=== PATIENT | female | born 1985 | race Caucasian/White ===

== ENCOUNTER 2021-03-13 14:38 | Emergency (ER) | payer OTHER, SELFPAY ==
--- NOTE | ~2021-03-13 | XR_ITS ---
EXAMINATION: XR shoulder LT min 2V DATE: 03/13/2021 14:58 INDICATION: Left shoulder pain post fall TECHNIQUE: AP internally and externally rotated, AP oblique externally rotated and transscapular Y vi ews of the left shoulder were obtained. COMPARISON: None FINDINGS: Fracture extending across the surgical neck of the proximal left humerus with approximately 5 mm ante romedial displacement and 15-20 degrees posterolateral angulation. The fracture plane is either irreg ular with both transverse and oblique components versus mildly comminuted. No evident extension into the humeral head or lesser greater tuberosities. Humeral head appears normally centered of the glenoi d with unremarkable glenohumeral joint. Left acromioclavicular joint space is normal. Visualized port ions of the lungs are clear. Soft tissues are unremarkable. IMPRESSION: 1 part fracture at the surgical neck of the proximal left humerus. Reviewed, dictated and finalized at [facility]. HERMAL OPERATING ENGINEER
[2021-03-13 14:37] VITALS: BP 132/91; PULSE 97; RESP 18; TEMP 36.7; O2SAT 99
[2021-03-13] MEDS: HYDROmorphone HCL INJ (*CRX) 1 MG/ML SYR 0.5 MG IV PUSH (15:23)
[2021-03-13] MEDS: ONDANSETRON INJ 4 MG/2 ML VIAL IV PUSH (15:23)
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
[2021-03-13 16:34] VITALS: BP 132/78; PULSE 78; RESP 18; O2SAT 99
== END 2021-03-13 16:36 | disposition home or self-care (01) ==
PROVIDERS: Emergency Provider Emergency Medicine
DX: S42.202A Unspecified fracture of upper end of left humerus, initial encounter for closed fracture (principal); V00.848A Other accident with standing micro-mobility pedestrian conveyance, initial encounter
CPT/HCPCS: 73030; 96374; 96375; 99284; A4565; J1170; J2405

== ENCOUNTER 2022-02-28 10:02 | Emergency (ER) | payer OTHER, SELFPAY ==
[2022-02-28 10:20] VITALS: BP 124/86; PULSE 110; RESP 20; TEMP 36.1; O2SAT 98
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
== END 2022-02-28 11:16 | disposition home or self-care (01) ==
PROVIDERS: Emergency Provider Nurse Practitioner Family
DX: J02.9 Acute pharyngitis, unspecified (principal); Z20.822 Contact with and (suspected) exposure to COVID-19; M19.90 Unspecified osteoarthritis, unspecified site; R12 Heartburn
CPT/HCPCS: 87081; 87426; 87804; 87880; 99213; C9803; G0463

== ENCOUNTER 2024-03-22 07:10 | Outpatient (CLI) | payer OTHER, SELFPAY ==
[2024-03-22 08:40] LABS: Beta HCG Quantitative < 2.39 mIU/ML
[2024-03-22 13:32] LABS: Free T4 Free Thyroxine Reflex 1.16 ng/dL (0.78-2.19)
[2024-03-23 17:09] LABS: FSH 12.4 mIU/mL; LH 2.7 mIU/mL; Prolactin 11.3 ng/mL
[2024-03-26 01:08] LABS: Estradiol, Ultrasensitive 42 pg/mL
--- OUTSIDE RECORDS SUMMARY | 2024-03-29 01:37 | XMS_ITS | Encounter Summary ---
Author Organization [facility] Address [address] [place] [address]. [place], [place] [id number] [place] [address] Care Team Providers Care Swimming Coach Or Instructor Name Role Phone None, Provider Primary Care Provider Unavaila ble Reason for Referral * Imaging (Emergency) - Closed Specialty Diagnoses / Procedures Referred By Contac t Referred To Contact RADIOLOGY Diagnoses Shoulder pain, left Procedures CT SHOULDER LT WO CON Geraldine Pope NP [address] [place] [id number] Phone: tel: fax: Referral ID Status Reason Start Date Expiration Date Visits Re quested Visits Authorized [id number] Closed 03/18/2021 04/18/2022 1 1 F PROGRAM OFFICER Reason for Visit * Imaging (Emergency) - Closed Specialty Diagnoses / Procedures Referred By Contac t Referred To Contact RADIOLOGY Diagnoses Shoulder pain, left Procedures CT SHOULDER LT WO CON Geraldine Pope NP [address] [place] [address] Phone: tel: fax: Referral ID Status Reason Start Date Expiration Date Visits Re quested Visits Authorized [id number] Closed 03/18/2021 04/18/2022 1 1 Encounter Details Date Type Department Care Team (Latest Contact Info) Description 03/18/2021 2:00 PM CHIEF PROGRAM OFFICER - 03/18/2021 11:59 PM CHIEF PROGRAM OFFICER [place] [address] [place] [address] Geraldine Pope, SKYELR [address] [place] [address] Discharge Disposition: Home or Self Care (Routine Discharge) Social History Tobacco Use Types Packs/Day Years Used Date Smoking Tobacco: Never Assessed Comments Unknown Sex and Gender Information Value Date Recorded Sex Assigned at Not on file Legal Sex Female 4:44 PM CDT Gender Identity Not on file Sexual Orientation Not on file COVID-19 Exposure Response Date Recorded In the last month, have you been in contact with someone who was confirmed or suspected to have Coronavirus / COVID-19? No / Unsure 03/18/2021 1:55 PM CHIEF PROGRAM OFFICER documented as of this encounter Plan of Treatment Not on file documented as of this encounter Procedures Procedure Name Priority Date/Time Associated Diagnosis Comments CT SHOULDER LT WO CON STAT 03/18/2021 2:57 PM CHIEF PROGRAM OFFICER Shoulder pain, left documented in this encounter Results * CT SHOULDER LT WO CON (03/18/2021 2:57 PM CHIEF PROGRAM OFFICER) Anatomical Region Laterality Modality Shoulder Computed Tomogra phy 03/18/2021 3:43 PM CHIEF PROGRAM OFFICER Narrative 03/18/2021 3:51 PM CHIEF PROGRAM OFFICER IMAGING STUDIES: CT SHOULDER LT WO CON ? DATE: 03/18/2021 2:38 PM CLINICAL HISTORY: Shoulder pain, left ?? . ??Fall. COMPARISON: No Comparisons. Radiation dose reduction technique utilized. CONCLUSION: 1. ??Exam is positive for comminuted and impacted fracture of the humeral neck. Subtle extension into the inferior aspect of the greater tuberosity. 2. ??Minor angulation with apex pointing anteriorly. Normal contour to the humeral head. 3. ??AC joint is well-maintained. Distal clavicle and scapula are intact. 4. ??Mild adjacent soft tissue swelling. Small joint effusion. No focal fluid collections. No axillary lesions. Ordered By: GERALDINE POPE Interpreted By: Andrew Campbell, 03/18/2021 3:43 PM Procedure Note Elpidio Campbell MD - 03/18/2021 IMAGING STUDIES: CT SHOULDER LT WO CON DATE: 03/18/2021 2:38PM CLINICAL HISTORY: Shoulder pain, left . Fall. COMPARISON: No Comparisons. Radiation dose reduction technique utilized. CONCLUSION: 1. Exam is positive for comminuted and impacted fracture of the humeralneck. Subtle extension into the inferior aspect of the greatertuberosity. 2. Minor angulation with apex pointing anteriorly. Normal contour to thehumeral head. 3. AC joint is well-maintained. Distal clavicle and scapula are intact. 4. Mild adjacent soft tissue swelling. Small joint effusion. No focalfluid collections. No axillary lesions. Ordered By: GERALDINE POPE Interpreted By: Andrew Campbell, 03/18/2021 3:43 PM us Geraldine Ppoe NP CT Final Result documented in this encounter Visit Diagnoses Diagnosis Shoulder pain, left Pain in joint, shoulder region documented in this encounter Care Teams Swimming Coach Or Instructor Relationship Specialty Start Date End Date None, Provider, PCP - General 03/18/21 documented as of this encounter
--- OUTSIDE RECORDS SUMMARY | 2024-03-29 01:37 | XMS_ITS | Clinical Summary ---
Author Organization [facility] Address [address] [place] [address]. [place], [place] [address] [place] [address] Care Team Providers Care Dough Catcher Name Role Phone None, Provider Primary Care Provider Unavaila ble Social History Tobacco Use Types Packs/Day Years Used Date Smoking Tobacco: Never Assessed Comments Unknown Sex and Gender Information Value Date Recorded Sex Assigned at Not on file Legal Sex Female 4:44 PM CDT Gender Identity Not on file Sexual Orientation Not on file Plan of Treatment Health Maintenance Due Date Last Done Comments Cervical Cancer Screening Pa p Smear (Age 30 to 64) Every 3 Years 1986 Annual Physical 1989 Hepatitis C 01/17/2004 DTaP, Tdap and Td Vaccines ( 1 - Tdap) 2005 Hepatitis B Vaccines (1 of 3 - 19+ 3-dose series) 2005 Cervical Cancer Screening Pa p with HPV Testing (Age 30 to 64) Every 5 Years 01/17/2016 Cervical Cancer Screening with HPV 01/17/2016 COVID-19 Vaccine (2023-2 5 season) 2023 Influenza Adult (#1) 2023 HPV Vaccines Aged Out No longer eligi ble based on patient's age to complete this topic Meningococcal Vaccine Aged Out No jim braydon eligible based on patient's age to complete this topic Pneumococcal Vaccine: Pediat rics (0 to 5 Years) and At-Risk Patients (6 to 64 Years) Aged Out No longer eligible b ased on patient's age to complete this topic RSV Immunizations Under 20 Months Aged Out No longer eligible based on patient's age to complete this topic Insurance THERI[employer] Care Teams Dough Catcher Relationship Specialty Start Date End Date None, Provider, PCP - General 03/18/21
--- OUTSIDE RECORDS SUMMARY | 2024-03-29 01:37 | XMS_ITS | Patient Health Summary ---
Author Organization [facility] Address [address] [place] [address] Care Team Providers Care Parts Cataloger Name Role Phone Unavailable Primary Care Provider Unavailabl e Note from [facility],non-owned Affiliates and Associated Physician Practices is amultiple site organization consisting of ambulatory clinics and hospital sitesin [place], [place], [place] and [place]. This disclosure is being madepursuant to the Care Everywhere program and may not contain all information available regarding this patient. Last updated 17.[facility] Active Problems Problem Noted Date Diagnosed Date Small for gestational age 0406/29/2013 Supervision of other high-risk 014 Social History Tobacco Use Types Packs/Day Years Used Date Smoking Tobacco: Never Assessed Sex and Gender Information Value Date Recorded Sex Assigned at Not on file Gender Identity Not on file Sexual Orientation Not on file Procedures * SONOGRAM - COMPLETE(Performed 07/03/2013) Performed for Small for gestational age (HCC), Supervision of other high-risk (HCC) Results * SONOGRAM - COMPLETE (07/03/2013 4:28 PM CDT) Anatomical Region Laterality Modality Other 07/03/2013 4:28 PM CDT Narrative 07/03/2013 4:29 PM CDT ?[facility]aternal [facility] ? [facility] ?PHONE: ??FAX: ? Pat. Name: ?MAR BURTON Reema. No: ?[id number] Study Date: ?? 07/03/2013 ??4:28pm , Age: ? 1985, 28 Pregnancies: ?? 1 LMP: ?10/12/2012 GA by LMP: ?37w5d GA by US: ? 35w4d GA Selected: ??36w6d (From Known E) CASS: ?07/25/2013 Referring MD: PERLA KNIGHT MD Stripe Marker: ??Alanna Sandhu RDMS Hist/Ind: ? Small HC on Outside Scan MEASUREMENTS & AGE ? GROWTH EVALUATION Measurement ??GA ? Range ? Srce %for GA Ratios ----- ---- ------- BPD ??8.3 cm 33w2d (41f6g-65f3l) Hadl BPD <05 FL/BPD 0.90 (0.71 - 0.87* HC ??30.7 cm 34w2d (54o2j-11m1o) Hadl HC ??11% FL/AC ??0.23 (0.20 - 0.24) AC ??32.2 cm 36w1d (75d7a-66v1y) Hadl AC ??39% HC/AC ??0.95 (0.92 - 1.11) FL ?? 7.4 cm 37w6d (18p7z-46n5n) Hadl FL ??65% CI ? 0.75 (0.70 - 0.86) HL ?? 6.3 cm 36w3d (39n7t-39z2p) Ruddy HL ??42% GA for sonogram 35w4d (33r1a-14f6g) ?? Weight Estimate: based on (HL,BPD,HC,AC,FL) Avg ? Weight: 2836 gm (1568-8678) Hadlo ? : 6lbs, 4oz ? Normal: 2839 gm (2293- 3444) Brenn ? Wt% ? 50% for 36w6d Amniotic Fluid Index: 15.5cm (07.5-24.5) Q1: 3.7cm ??Q2: 3.2cm ??Q3: 4.0cm ??Q4: 4.6cm ?? CLINICAL SUMMARY Study Number: ??1 A min fetus is identified in cephalic presentation. The amniotic fluid volume is within normal limits. ??The placenta is left lateral. ?? IMPRESSION: ?? Min gestation, 37w5d Biometry is consistent with the previously established CASS of 5/7/14 No structural abnormalities were detected on detailed anatomic survey A portion of the survey was suboptimal as noted in the table above. NOTE: ??The patient was advised that ultrasound does not allow detection of all structural or chromosomal abnormalities. ?? RECOMMEND: ?? Follow up only as clinically indicated. Thank you for allowing us the opportunity to care for your patient. Gayathri Baeza MD <Electronic Signature> ??07/03/2013 04:27pm Perla Knight MD [facility] ORDERABLES
--- OUTSIDE RECORDS SUMMARY | 2024-03-29 01:37 | XMS_ITS | Encounter Summary ---
Author Organization [facility] Address [facility] [facility] [place] [address] [place] [address] Care Team Providers Care Leather Piece Inspector Name Role Phone Unavailable Primary Care Provider Unavailabl e Encounter Details Date Type Department Care Team (Late st Contact Info) Description 08/01/2004 Abstract [facility] CONVERSION [address] [place], [place] [id number] Damian Abdalla MD [address] [place] [address] Social History Tobacco Use Types Packs/Day Years Used Date Smoking Tobacco: Never Assessed Comments Unknown Sex and Gender Information Value Date Recorded Sex Assigned at Not on file Legal Sex Female 4:44 PM CDT Gender Identity Not on file Sexual Orientation Not on file documented as of this encounter Plan of Treatment Not on file documented as of this encounter Visit Diagnoses Not on filedocumented in this encounter
--- OUTSIDE RECORDS SUMMARY | 2024-03-29 01:37 | XMS_ITS | Referral Summary ---
Author Organization [facility] Address [address] [place] [address] Care Team Providers Care Terminal Press Operator Name Role Phone Unavailable Primary Care Provider Unavailabl e Source Comments [facility],non-owned Affiliates and Associated Physician Practices is amultiple site organization consisting of ambulatory clinics and hospital sitesin [place], [place], [place] and [place]. This disclosure is being madepursuant to the Care Everywhere program and may not contain all information available regarding this patient. Last updated 17.[facility] Active Problems Problem Noted Date Diagnosed Date Small for gestational age 0406/29/2013 Supervision of other high-risk 014 Overview (01/26/2015): Social History Tobacco Use Types Packs/Day Years Used Date Smoking Tobacco: Never Assessed Sex and Gender Information Value Date Recorded Sex Assigned at Not on file Gender Identity Not on file Sexual Orientation Not on file Plan of Treatment Not on file
--- OUTSIDE RECORDS SUMMARY | 2024-03-29 01:37 | XMS_ITS | Clinical Summary ---
Author Organization [facility] Address [address] [place] [address] Care Team Providers Care Charter Driver Name Role Phone Unavailable Primary Care Provider Unavailabl e Source Comments [facility],non-owned Affiliates and Associated Physician Practices is amultiple site organization consisting of ambulatory clinics and hospital sitesin [place], [place], [place] and [place]. This disclosure is being madepursuant to the Care Everywhere program and may not contain all information available regarding this patient. Last updated 17.[facility] Active Problems Problem Noted Date Diagnosed Date [...] Health Maintenance Due Date Last Done Comments PAP SMEAR 1986 HIV SCREENING 2001 HEPATITIS C SCREENING 01/12/2004 DTAP/TDAP/TD VACCINES (1 - Tdap) 2005 HEPATITIS B VACCINE (1 of 3 - 19+ 3-dose series) 2005 DEPRESSION SCREENING 03/21/2023 COVID-19 VACCINE ( - 2023-2 5 season) 2023 INFLUENZA VACCINE (#1) 2023 ZOSTER VACCINE (1 of 2) 01/17/2036 HIB VACCINE Aged Out No longer eligi ble based on patient's age to complete this topic HPV VACCINE Aged Out No longer eligi ble based on patient's age to complete this topic MENINGOCOCCAL VACCINE Aged Out No jim braydon eligible based on patient's age to complete this topic PNEUMOCOCCAL VACCINE Aged Out No long er eligible based on patient's age to complete this topic
--- OUTSIDE RECORDS SUMMARY | 2024-03-29 01:37 | XMS_ITS | Encounter Summary ---
Author Organization [facility] Address [facility] [facility] [place], [place] [address] [place] [address] Care Team Providers Care Physically Impaired Teacher Name Role Phone None, Provider Primary Care Provider Unavaila ble Encounter Details Date Type Department Care Team (Latest Contact Info) Description 03/18/2021 Travel Social History Tobacco Use Types Packs/Day Years [...] COVID-19? No / Unsure 03/18/2021 1:55 PM MANAGER MEAT documented as of this encounter Plan of Treatment Not on file documented as of this encounter Visit Diagnoses Not on filedocumented in this encounter Care Teams Physically Impaired Teacher Relationship Specialty Start Date End Date None, Provider, PCP - General 03/18/21 documented as of this encounter
--- OUTSIDE RECORDS SUMMARY | 2024-03-29 01:37 | XMS_ITS | Encounter Summary ---
Author Organization [facility] Address [facility] [facility] [place] [address] [place] [address] Care Team Providers Care Dough Brake Machine Operator Name Role Phone Unavailable Primary Care Provider Unavailabl e Encounter Details Date Type Department Care Team (Late st Contact Info) Description 09/18/2009 Abstract [facility] CONVERSION [address] [place], [place] [id number] Josephine Quintana PA-C [address] [place] [address] [address] [place] [address] Social History Tobacco Use Types Packs/Day Years [...]
--- OUTSIDE RECORDS SUMMARY | 2024-03-29 01:37 | XMS_ITS | Encounter Summary ---
Author Organization [facility] Address [address] [place] [address] Care Team Providers Care Marketing Instructor Name Role Phone Unavailable Primary Care Provider Unavailabl e Encounter Details Date Type Department Care Team (Latest Contact Info) Description 07/03/2013 2:18 PM CDT - 07/03/2013 11:59 PM CDT Hospital Encounter [facility] Maternal & Care [address] [place], [place] [id number] Gayathri Baeza MD [address] [id number] Discharge Disposition: Home or Self Care Social History Tobacco Use Types Packs/Day Years Used Date Smoking Tobacco: Never Assessed Comments Yes Sex and Gender Information Value Date Recorded Sex Assigned at Not on file Gender Identity Not on file Sexual Orientation Not on file documented as of this encounter Plan of Treatment Not on file documented as of this encounter Procedures Procedure Name Priority Date/Time Associated Diagnosis Comments SONOGRAM - COMPLETE Routine 07/03/2013 4 :28 PM CDT Small for gestational age (HCC) Supervision of other high-risk (HCC) documented in this encounter Results * SONOGRAM - COMPLETE (07/03/2013 4:28 PM CDT) Anatomical Region Laterality Modality Other 07/03/2013 4:28 PM CDT Narrative 07/03/2013 4:29 PM CDT ?[facility] Maternal Medicine ? Maternal & Care Center ?PHONE: ??FAX: ? Pat. Name: ?MAR BURTON. No: ?[id number] Study Date: ?? 07/03/2013 ??4:28pm , Age: ? 1985, 28 Pregnancies: ?? 1 LMP: ?10/12/2012 GA by LMP: ?37w5d GA by US: ? 35w4d GA Selected: ??36w6d (From Known E) CASS: ?07/25/2013 Referring MD: PERLA KNIGHT MD Manager Appointment: ??Alanna Sandhu RDMS Hist/Ind: ? Small HC on Outside Scan MEASUREMENTS & AGE ? GROWTH EVALUATION Measurement ??GA ? Range ? Srce %for GA Ratios ----- ---- ------- BPD ??8.3 cm 33w2d (85m8w-17m8g) Hadl BPD <05 FL/BPD 0.90 (0.71 - 0.87* HC ??30.7 cm 34w2d (29c5r-10w8b) Hadl HC ??11% FL/AC ??0.23 (0.20 - 0.24) AC ??32.2 cm 36w1d (21l7p-79h3i) Hadl AC ??39% HC/AC ??0.95 (0.92 - 1.11) FL ?? 7.4 cm 37w6d (92c6z-24g1x) Hadl FL ??65% CI ? 0.75 (0.70 - 0.86) HL ?? 6.3 cm 36w3d (65h0s-68j9g) Ruddy HL ??42% GA for sonogram 35w4d (44x3l-31f1p) ?? Weight Estimate: based on (HL,BPD,HC,AC,FL) Avg ? Weight: 2836 gm (4084-2233) Hadlo ? : 6lbs, 4oz ? Normal: [...] consistent with the previously established CASS of 07/25/13 No structural abnormalities were detected on detailed [...] <Electronic Signature> ??07/03/2013 04:27pm Perla Knight MD [facility] ORDERABLES documented in this encounter Visit Diagnoses Diagnosis Small for gestational age (HCC)- Primary Zscjw-ona-zuhjr without mention of malnutrition, unspecified (weight) Supervision of other high-risk (V23.89) (HCC) Supervision of other high-risk documented in this encounter
--- OUTSIDE RECORDS SUMMARY | 2024-03-29 01:37 | XMS_ITS | Encounter Summary ---
Author Organization [facility] Address [facility] [facility] [place] [address] [place] [address] Care Team Providers Care Acquisition Editor Name Role Phone Unavailable Primary Care Provider Unavailabl e Encounter Details Date Type Department Care Team (Late st Contact Info) Description 03/30/2010 Abstract [facility] [address] [place], [place] [id number] Yeny Butcher PA [address] [place] [address] Social History Tobacco Use Types Packs/Day Years Used Date Smoking Tobacco: Never Assessed Comments Unknown Sex and Gender Information Value Date Recorded Sex Assigned at Not on file Legal Sex Female 4:44 PM CDT Gender Identity Not on file Sexual Orientation Not on file documented as of this encounter Plan of Treatment Not on file documented as of this encounter Visit Diagnoses Diagnosis Lump or mass in breast documented in this encounter
== END 2024-03-22 07:11 | disposition home or self-care (01) ==
LOC: ANHLAB 07:12
PROVIDERS: PCP Nurse Practitioner Family; Visit Provider Nurse Practitioner Family
DX: Z00.00 Encounter for general adult medical examination without abnormal findings (principal); G47.00 Insomnia, unspecified; F41.9 Anxiety disorder, unspecified; N92.6 Irregular menstruation, unspecified; N92.0 Excessive and frequent menstruation with regular cycle; H93.19 Tinnitus, unspecified ear; Z13.29 Encounter for screening for other suspected endocrine disorder; Z76.89 Persons encountering health services in other specified circumstances
CPT/HCPCS: 36415; 82670; 82728; 83001; 83002; 84146; 84439; 84443; 84480; 84702

== ENCOUNTER 2024-05-02 09:56 | Outpatient (CLI) | payer OTHER, SELFPAY ==
--- NOTE | ~2024-05-02 | XR_ITS ---
EXAMINATION: XR toe 3rd RT min 2V DATE: 05/02/2024 10:16 INDICATION: Unspecified fracture of right toes. TECHNIQUE: 4 views of right third toe were obtained. COMPARISON: None. FINDINGS: Alignment is normal. No fracture. 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 IMPRESSION: 1. No fracture. Reviewed, dictated and finalized at location A. STMENT SPECIALIST IMPRESSION: 1. No fracture.
--- OUTSIDE RECORDS SUMMARY | 2024-05-02 10:56 | XMS_ITS | Clinical Summary ---
Author Organization [facility] Address [address] [facility] [place] [address] Care Team Providers Care Media Center Director School Name Role Phone Unavailable Primary Care Provider Unavailabl e Source Comments [facility],non-owned Affiliates and Associated Physician Practices is amultiple site organization consisting of ambulatory clinics and hospital sitesin [place], [place], [place] and [place]. This disclosure is being madepursuant to the Care Everywhere program and may not contain all information available regarding this patient. Last updated 17.[facility] Active Problems Problem Noted Date Diagnosed Date [...] of 3 - 19+ 3-dose series) 2005 COVID-19 VACCINE ( - 2023-2 5 season) 2023 INFLUENZA VACCINE (#1) 2023 DEPRESSION SCREENING 03/21/2024 ZOSTER VACCINE (1 of 2) 01/17/2036 HIB VACCINE Aged Out No longer eligi ble based on patient's age to complete this topic HPV VACCINE Aged Out No longer eligi ble based on patient's age to complete this topic MENINGOCOCCAL (Group B) VACCINE Aged Out No longer eligible based on patient's age to complete this topic MENINGOCOCCAL VACCINE Aged Out No jim braydon eligible based on patient's age to complete this topic PNEUMOCOCCAL VACCINE Aged Out No long er eligible based on patient's age to complete this topic
--- OUTSIDE RECORDS SUMMARY | 2024-05-02 10:56 | XMS_ITS | Clinical Summary ---
Author Organization [facility] Address [address] [place] [address] Care Team Providers Care Blue Leather Sorter Name Role Phone None, Provider MD Primary Care Provider Unavaila ble Social History [...] patient's age to complete this topic Meningococcal B Vaccine Aged Out No l onger eligible based on patient's age to complete [...] patient's age to complete this topic Insurance [employer] Care Teams Blue Leather Sorter Relationship Specialty Start Date End Date None, Provider, PCP - General 03/18/21
--- OUTSIDE RECORDS SUMMARY | 2024-05-02 10:56 | XMS_ITS | Patient Health Summary ---
Author Organization [facility] Address [address] [facility] [place] [address] Care Team Providers Care Mold Bunch Trimmer Name Role Phone Unavailable Primary Care Provider Unavailabl e Note from [facility],non-owned Affiliates and Associated Physician Practices is amultiple site organization consisting of ambulatory clinics and hospital sitesin [place], [place], [place] and [place]. This disclosure is being madepursuant to the Care Everywhere program and may not contain all information available regarding this patient. Last updated 17.[facility] Active Problems Problem Noted Date Diagnosed [...] PM CDT Narrative 07/03/2013 4:29 PM CDT [facility] Maternal Medicine Maternal & Care Center PHONE: FAX: Pat. Name: MAR BURTON Pat. No: [id number] Study Date: 07/03/2013 4:28pm , Age: 11 1985, 28 Pregnancies: 1 LMP: 10/12/2012 GA by LMP: 37w5d GA by US: 35w4d GA Selected: 36w6d (From Known E) CASS: 07/25/2013 Referring MD: PERLA KNIGHT MD [facility] Laborer: Alanna Sandhu RDMS Hist/Ind: Small HC on Outside Scan MEASUREMENTS & AGE GROWTH EVALUATION Measurement GA Range Srce %for GA Ratios ----- ---- ------- BPD 8.3 cm 33w2d (93c2h-03s0t) Hadl BPD <05 FL/BPD 0.90 (0.71 - 0.87* HC 30.7 cm 34w2d (61l7a-74h3b) Hadl HC 11% FL/AC 0.23 (0.20 - 0.24) AC 32.2 cm 36w1d (07c4g-58o1y) Hadl AC 39% HC/AC 0.95 (0.92 - 1.11) FL 7.4 cm 37w6d (79c0s-99x1z) Hadl FL 65% CI 0.75 (0.70 - 0.86) HL 6.3 cm 36w3d (27y3n-34z2l) Ruddy HL 42% GA for sonogram 35w4d (41g7o-68s3z) Weight Estimate: based on (HL,BPD,HC,AC,FL) Avg Weight: 2836 gm (6995-3919) Hadlo : 6lbs, 4oz Normal: 2839 gm (8650-6822) Brenn Wt% 50% for 36w6d Amniotic Fluid Index: 15.5cm (07.5-24.5) Q1: 3.7cm Q2: 3.2cm Q3: 4.0cm Q4: 4.6cm CLINICAL SUMMARY Study Number: 1 A min fetus is identified in cephalic presentation. The amniotic fluid volume is within normal limits. The placenta is left lateral. IMPRESSION: Min gestation, 37w5d Biometry is consistent with the previously established CASS of 07/25/13 No structural abnormalities were detected on detailed anatomic survey A portion of the survey was suboptimal as noted in the table above. NOTE: The patient was advised that ultrasound does not allow detection of all structural or chromosomal abnormalities. RECOMMEND: Follow up only as clinically indicated. Thank you for allowing us the opportunity to care for your patient. Gayathri Baeza MD <Electronic Signature> 07/03/2013 04:27pm Perla Knight MD [facility] ORDERABLES
--- OUTSIDE RECORDS SUMMARY | 2024-05-02 10:57 | XMS_ITS | Referral Summary ---
Author Organization [facility] Address [address] [place] [address] Care Team Providers Care Turning Machine Operator Name Role Phone Unavailable Primary Care Provider Unavailabl e Source Comments [facility],non-owned Affiliates and Associated Physician Practices is amultiple site organization consisting of ambulatory clinics and hospital sitesin [place], [place], [place] and [place]. This disclosure is being madepursuant to the Care Everywhere program and may not contain all information available regarding this patient. Last updated 17.[facility] Active Problems Problem Noted Date Diagnosed Date [...]
== END 2024-05-02 09:57 | disposition home or self-care (01) ==
PROVIDERS: PCP Nurse Practitioner Family; Visit Provider Family Medicine
DX: S92.911A Unspecified fracture of right toe(s), initial encounter for closed fracture (principal); X58.XXXA Exposure to other specified factors, initial encounter
CPT/HCPCS: 73660

== ENCOUNTER 2024-10-17 12:51 | Outpatient (CLI) | payer OTHER, SELFPAY ==
--- NOTE | ~2024-10-17 | XR_ITS ---
Left foot Technique: AP and lateral views were obtained. Clinical History: Injury Findings: No acute fracture or dislocation is seen. Osseous alignment is anatomic. Joint spaces are p reserved without erosive or degenerative change. Soft tissues are unremarkable. Impression: Unremarkable left foot radiographs. Reviewed, dictated and finalized at [facility]. Impression: Unremarkable left foot radiographs.
--- NOTE | ~2024-10-17 | XR_ITS ---
AP, oblique, and lateral views of the left fifth toe CLINICAL HISTORY: Injury FINDINGS: No acute fracture or dislocation seen. Joint spaces are intact. Soft tissues are unremarkab le. IMPRESSION: Unremarkable exam. Reviewed, dictated and finalized at location . IMPRESSION: Unremarkable exam.
--- OUTSIDE RECORDS SUMMARY | 2024-10-17 12:57 | XMS_ITS | Clinical Summary ---
Author Organization [facility] [employer] Address [address] [facility] [address] Care Team Providers Care Telecom Engineer Name Role Phone Unavailable Primary Care Provider Unavailabl e Source Comments [facility],non-owned Affiliates and Associated Physician Practices is amultiple site organization consisting of ambulatory clinics and hospital sitesin [place], [place], [place] and [place]. This disclosure is being madepursuant to the Care Everywhere program and may not contain all information available regarding this patient. Last updated 17.[facility] [employer] Active Problems Problem Noted Date Diagnosed Date Small for gestational age 0406/29/2013 Supervision of other high-risk 014 Overview (01/26/2015): Social History Tobacco Use Types Packs/Day Years Used Date Smoking Tobacco: Never Assessed Comments No Sex and Gender Information Value Date Recorded Sex Assigned at Not on file Legal Sex Female 10:33 AM CDT Gender Identity Not on file Sexual Orientation Not on file Plan of Treatment Health Maintenance Due Date Last Done Comments HIV SCREENING 2001 HEPATITIS C SCREENING 01/12/2004 DTAP/TDAP/TD VACCINES (1 - Tdap) 2005 HEPATITIS B VACCINE (1 of 3 - 19+ 3-dose series) 2005 HPV VACCINE (1 - 3-dose SCDM series) 2013 COVID-19 VACCINE ( - 2023-2 5 season) 2023 DEPRESSION SCREENING 03/21/2024 INFLUENZA VACCINE (#1) 2024 ZOSTER VACCINE (1 of 2) 01/17/2036 HIB VACCINE Aged Out No longer eligi ble based on patient's age to complete this topic MENINGOCOCCAL (Group B) VACC INE SHARED DECISION-MAKING Aged Out No longer eligibl e based on patient's age to complete this topic MENINGOCOCCAL GROUPS A/C/Y/W VACCINE Aged Out No longer eligible b ased on patient's age to complete this topic PNEUMOCOCCAL VACCINE Aged Out No long er eligible based on patient's age to complete this topic Insurance [facility] Address: [facility] [id number] [place] [id number]
== END 2024-10-17 12:52 | disposition home or self-care (01) ==
PROVIDERS: PCP Nurse Practitioner Family; Visit Provider Nurse Practitioner Family
DX: S99.922A Unspecified injury of left foot, initial encounter (principal); X58.XXXA Exposure to other specified factors, initial encounter
CPT/HCPCS: 73620; 73660